=== PATIENT | male | born 1965 | race Caucasian/White ===

== ENCOUNTER 2021-05-01 16:22 | Inpatient (IN) | payer MEDICARE, SELFPAY ==
[2021-05-01] VITALS (12 sets, daily range): BP systolic 121–148; BP diastolic 62–93; PULSE 92–112; RESP 17–31; TEMP 36.9–38.1; O2SAT 83–99; BMI 29.8; BMI 32.9
--- NOTE | 2021-05-01 17:11 | RAD_ITS ---
STUDY: X-RAY CHEST REASON FOR EXAM: Male, 56 years old. Cough. COVID. Shortness of breath. Hypoxia. TECHNIQUE: Single AP portable view of the chest. COMPARISON: None. FINDINGS: Elevated right hemidiaphragm. There is patchy densities in the right perihilar region and left lung base. There is no demonstrated pleural abnormality. Normal size heart. Normal mediastinum and shelly. Normal visualized pulmonary arteries. Normal visualized aortic arch and descending thoracic aorta. Normal visualized thoracic spine. Normal visualized ribs, clavicles, and shoulders. There is no demonstrated abnormality of the visualized soft tissue structures of the upper abdomen. RAD/Chest 1 View (Portable) IMPRESSION: Bilaterally pulmonary infiltrates suspicious for COVID pneumonia. Electronically Signed: Ha Lara DO at 17:37 EDT Tel [phone], Service support ,
[2021-05-01] MEDS: Acetaminophen 500 MG Tablet 1000 MG PO (17:27)
[2021-05-01 17:33] LABS: Absolute Lymphocyte Count 0.77 X10^3/uL (0.83-4.51); Absolute Neutrophil Count 5.2 X10^3/uL (2.0-7.7); Basophil# 0.02 X10^3/uL; Basophil% 0.3 % (0-1); Hematocrit 47.9 % (40-54); Hemoglobin 16.4 g/dL (13.0-16.5); Lymphocyte # 0.77 X10^3/ul (0.83-4.51); Lymphocyte % 11.5 % (19-41); Mean Corp Hgb Conc 34.2 g/dL (32-36); Mean Corpuscular Hgb 30.8 pg (27.0-32.0); Mean Platelet Vol. 11.4 fl (6.2-12.0); Monocyte# 0.69 X10^3/uL; Monocyte% 10.3 % (0-10); NRBC Flagged by Analyzer 0 % (0-5); Neutrophil # 5.17 X10^3/uL (2.7-7.7); Neutrophil % 77.5 % (47-70); Platelet Count 173 K/mm3 (150-450); RBC Distribution Width CV 12.3 % (11.6-14.6); RBC Distribution Width SD 40.6 fl (35.1-43.9); Red Blood Count 5.32 M/mm3 (4.6-6.2); White Blood Count 6.7 K/mm3 (4.4-11.0)
[2021-05-01 17:44] LABS: D-Dimer Quantitative (DVT/PE) 0.87 FEU/ug/m (0.27-0.49)
--- NOTE | 2021-05-01 17:47 | CT_ITS ---
STUDY: CTA CHEST REASON FOR EXAM: Male, 56 years old. Shortness of breath. COVID. 83% oxygen saturation on room air. RADIATION DOSAGE (If Supplied By Facility): CTDIvol = ( 12.4 ) mGy, DLP = ( 546.35 ) mGycm TECHNIQUE: The examination was performed with the intravenous administration of IV 100mL Isovue-370. Post-processing of the angiographic images was performed, with multiplanar reformation and 3D reconstruction. Individualized dose optimization techniques were used for this CT. COMPARISON: None. FINDINGS: Normal enhancement of the main pulmonary artery and right and left pulmonary arteries. Normal enhancement of the bilateral peripheral pulmonary arteries. There is no demonstrated pulmonary embolism. Mild atherosclerotic changes of the thoracic aorta without aneurysm. There is no demonstrated aortic dissection. Normal heart and pericardium. Mediastinal or hilar lymphadenopathy. The largest node, in the subcarinal space measures 2.3 x 2.0 x 1.2 cm in size. Normal visualized trachea and bronchi. The lungs are well expanded. Patchy groundglass infiltrates throughout both lungs, predominantly peripheral in location with no focal mass or consolidation. Normal pleura. Normal chest wall structures. Normal osseous structures. Normal visualized upper abdomen. CT/CTA Chest W/WO Contrast IMPRESSION: 1. No evidence of pulmonary embolus. 2. No aortic dissection or aneurysm. 3. Peripheral groundglass pulmonary infiltrates consistent with COVID 19 pneumonia. Electronically Signed: Ha Lara DO at 18:26 EDT Tel [phone], Service support ,
[2021-05-01 17:51] LABS: ALB/GLOB Ratio 0.5 RATIO (0.9-2.4); AST(SGOT) 49 U/L (15-37); Alanine Aminotransfer ALT/SGPT 43 U/L (16-61); Albumin, Serum 2.9 g/dL (3.2-5.0); Alkaline Phosphatase 88 U/L (45-117); Anion Gap 6 (5-15); BUN 14 mg/dL (7-18); BUN/Creat Ratio 12.8 RATIO (10-20); Calcium,Total 8.3 mg/dL (8.5-10.1); Chloride 98 mmol/L (98-107); Creatinine, Serum 1.09 mg/dL (0.70-1.30); EST Glomerular Filtration Rate 74 mL/min (>60); Est Glom Filt Rate - Afr Amer 90 mL/min (>60); Estimated Creatinine Clearance 68.29 ml/min; Globulin 5.5 g/dL (2.2-4.2); Glucose 99 mg/dL (74-106); Potassium 4.4 mmol/L (3.5-5.1); Protein, Total 8.4 g/dL (6.4-8.2); Sodium Level 133 mmol/L (136-145); Troponin-I HS 8 pg/mL (3.0-78.0)
[2021-05-01 17:59] LABS: Lactic Acid 1.4 mmol/L (0.4-1.9)
[2021-05-01 18:03] LABS: Procalcitonin 0.11 ng/mL (0.00-0.09)
--- NOTE | 2021-05-01 18:44 | EDS_ITS ---
HPI History of Present Illness Chief Complaint: Shortness of Breath Narrative Narrative: Patient presenting for evaluation secondary to complications of coronavirus. Patient states that he is about 9 days into a coronavirus infection. He states that he was doing generally okay, but today started to have significant feelings of shortness of breath. He states that it is a feeling that he cannot take a deep breath without having a cough reflex. Denies any mops is. He has been having fevers and diarrhea. Is also been having some dry heaves associated with it. Patient denies any underlying history of lung disease, no smoking. Patient had a triage pulse ox of 83%. PFSH PFS Medical History no medical history Home Medications NK 05/01/21 [History Last Taken Unknown] Allergy/AdvReac Type Severity Reaction Status Date / Time No Known Allergies Allergy Verified 05/01/21 16:23 Social History Smoking Status: Never smoker ROS ROS ED Constitutional Constitutional ED: Reports chills and fever(s) ENT ENT ED: Denies rhinorrhea Cardiovascular Cardiovascular: Denies chest pain Respiratory/Chest Respiratory/Chest: Reports cough and dyspnea Gastrointestinal Gastrointestinal: Reports diarrhea and vomiting Genitourinary Genitourinary ED: Denies dysuria or hematuria Musculoskeletal Musculoskeletal: Denies back pain Integumentary Denies rash Neurologic Neurologic: Denies paresthesias or weakness Psychiatric Psychiatric: Denies depression Endocrine Endocrinology: Denies fatigue Allergic/Immunologic Allergic/Immunologic ED: Denies urticaria EXAM Physical Exam Const Vital Signs: 05/01/21 16:24 05/01/21 16:26 05/01/21 17:01 Temperature 100.5 F H 100.5 F H Temperature Source Temporal Temporal Pulse Rate 112 H 112 H Respiratory Rate 24 H 22 H 22 H Respiratory Effort Respiratory Depth Respiratory Pattern Blood Pressure 124/85 H 124/85 H Blood Pressure Mean 98 98 Pulse Ox 83 97 97 Oxygen Delivery Method Room Air Nasal Cannula Nasal Cannula Oxygen Flow Rate (L/min) 2 2 05/01/21 17:02 05/01/21 17:28 05/01/21 18:42 Temperature 98.7 F Temperature Source Oral Pulse Rate 110 H 108 H Respiratory Rate 25 H 17 Respiratory Effort Short of Breath Respiratory Depth Deep Respiratory Pattern Tachypnea Blood Pressure 142/87 H 148/62 H Blood Pressure Mean 105 90 Pulse Ox 95 94 Oxygen Delivery Method Nasal Cannula Nasal Cannula Nasal Cannula Oxygen Flow Rate (L/min) 2 2 2 Positive well nourished and well developed General Appearance ED: well developed and NAD HEENT Reports moist mucous membranes Negative for trauma or tenderness Eyes EOMs intact bilaterally Neck no lymphadenopathy, supple and no JVD Chest Wall inspection of chest normal Resp Resp Narrative: Patient is tachypneic with clear lung sounds Cardio regular rhythm, no murmurs and peripheral pulses 2+ throughout Rate: tachycardic GI normal to inspection, nondistended, normoactive bowel sounds, non-tender and no masses Palpation: soft Back/Spine normal to inspection Extremity normal to inspection General Extremety ED: Negative for tenderness Neuro oriented x3 and no sensory deficits noted Sensorium / Orientation: alert Motor Exam: strength 5/5 throughout Psych mental status grossly normal Skin no rashes or lesions noted MDM MDM MDM Narrative Medical decision making narrative: Patient was 83% on arrival, he was placed on supplemental oxygen. Patient's had a work-up obtained in the emergency department. He was given fluids and Tylenol. Patient's pulse ox did bump up to 94% on supplemental oxygen. CBC was unremarkable, D-dimer was unfortunately found to be positive chemistry was unremarkable, CRP was elevated at 90. CT angiogram of the chest was obtained did not show any signs of pulmonary emboli shows infiltrates consistent with the patient's coronavirus. I reviewed the patient's x-ray personally, and this also shows bilateral infiltrates. Patient will be administered steroids, I believe that he requires admission at this point. Patient was admitted for further treatment. Lab Data Labs: Laboratory Results - last 24 hr 05/01/21 05/01/21 05/01/21 17:20 17:20 17:20 WBC 6.7 RBC 5.32 Hgb 16.4 Hct 47.9 MCV 90.0 MCH 30.8 MCHC 34.2 RDW Std Deviation 40.6 RDW Coeff of Stevie 12.3 Plt Count 173 MPV 11.4 Immature Gran % (Auto) 0.400 Neut % (Auto) 77.5 H Lymph % (Auto) 11.[address] [place] % (Auto) 10.3 H Eos % (Auto) 0.0 Baso % (Auto) 0.3 Absolute Neuts (auto) 5.2 Absolute Lymphs (auto) 0.77 L Nucleated RBC % 0 D-Dimer Quant (PE/DVT) 0.87 H* Sodium 133 L Potassium 4.4 Chloride 98 Carbon Dioxide 29.0 Anion Gap 6 BUN 14 Creatinine 1.09 Estim Creat Clear Calc 68.29 Est GFR (MDRD) Af Amer 90 Est GFR (MDRD) Non-Af 74 BUN/Creatinine Ratio 12.8 Glucose 99 Lactic Acid Calcium 8.3 L Total Bilirubin 0.30 AST 49 H ALT 43 Alkaline Phosphatase 88 Troponin I High Sens 8 C-React Prot Ext Range 90.70 H Total Protein 8.4 H Albumin 2.9 L Globulin 5.5 H Albumin/Globulin Ratio 0.5 L Procalcitonin 05/01/21 05/01/21 17:20 17:20 WBC RBC Hgb Hct MCV MCH MCHC RDW Std Deviation RDW Coeff of Stevie Plt Count MPV Immature Gran % (Auto) Neut % (Auto) Lymph % (Auto) [place] % (Auto) Eos % (Auto) Baso % (Auto) Absolute Neuts (auto) Absolute Lymphs (auto) Nucleated RBC % D-Dimer Quant (PE/DVT) Sodium Potassium Chloride Carbon Dioxide Anion Gap BUN Creatinine Estim Creat Clear Calc Est GFR (MDRD) Af Amer Est GFR (MDRD) Non-Af BUN/Creatinine Ratio Glucose Lactic Acid 1.4 Calcium Total Bilirubin AST ALT Alkaline Phosphatase Troponin I High Sens C-React Prot Ext Range Total Protein Albumin Globulin Albumin/Globulin Ratio Procalcitonin 0.11 H Radiography Diagnostic Testing: Radiology Impression Chest X-Ray 05/01/21 17:11 IMPRESSION: Bilaterally pulmonary infiltrates suspicious for COVID pneumonia. Electronically Signed: Ha Lara DO at 17:37 EDT Tel [phone], Service support , Chest CTA 05/01/21 17:47 IMPRESSION: 1. No evidence of pulmonary embolus. 2. No aortic dissection or aneurysm. 3. Peripheral groundglass pulmonary infiltrates consistent with COVID 19 pneumonia. Electronically Signed: Ha Lara DO at 18:26 EDT Tel [phone], Service support , Discharge Plan Triage Chief Complaint: Shortness of Breath ED Provider: Zachery Stephenson Dx/Rx/DC Orders Clinical Impression: COVID-19, Hypoxia Prescriptions: No Action NK RF: 0 Primary Care Provider: Livan Infante Referrals: Livan Infante MD [Primary Care Provider] - Disposition Disposition: Acute Care [facility]
[2021-05-01] MEDS: 0.9% Normal Saline 1,000 ML 125 ML IV (19:33)
[2021-05-01] MEDS: dexAMETHasone 4 MG/ML Vial 6 MG IV (19:33)
--- NOTE | 2021-05-01 19:33 | PCM.HP.STD ---
HPI - General HPI Narrative MELINDA VIGIL, is a 56 M came to ED for shortness of breath, weakness, hypoxia pulse ox 83% on room air. Patient has symptom onset of fatigue, weakness, loss of appetite about 8 days ago last Friday and then after 3 days started having mild diarrhea. For last 3 to 4 days is feeling short of breath on walking and cough. Loss of appetite and taste but retains sense of smell. His is also positive of Covid. Was tested Covid as an outpatient most probably PCR in [facility] on last 03/25/2021. In ED rapid antigen positive. D-dimer mildly elevated. Chest x-ray and CTA was done. No evidence of PE but peripheral groundglass pulmonary infiltrate consistent with COVID-19 pneumonia. Patient was given IV dexamethasone in ED and admitted. [facility] Medical History no medical history Home Medications NK 05/01/21 [History Last Taken Unknown] Allergy/AdvReac Type Severity Reaction Status Date / Time No Known Allergies Allergy Verified 05/01/21 16:23 Social History Smoking Status: Never smoker ROS ROS Narrative Constitutional: Fever, temperature 100.8 ?F T-max about 2 to 3 days ago. Reports fatigue and weakness HEENT: Reports systems reviewed and no addt'l complaints, except as documented Respiratory/Chest: Denies chest pain, shortness of breath with exertion. Hypoxia Gastrointestinal: Denies coffee ground emesis, hematemesis or vomiting Genitourinary: Denies burning urination or new urinary tract symptoms Musculoskeletal: Reports joint pain and limited range of motion Neurologic: Denies seizure-like activity skin: No ulcer. No rash Endocrinology: Reports systems reviewed and no addt'l complaints, except as documented Hematologic/Lymphatic: Reports systems reviewed and no addt'l complaints, except as documented Rest 12 ROS are negative except as mentioned in HPI Vital Signs Vital Signs Vital Signs: 05/01/21 16:24 05/01/21 16:26 05/01/21 17:01 Temperature 100.5 F H 100.5 F H Temperature Source Temporal Temporal Pulse Rate 112 H 112 H Respiratory Rate 24 H 22 H 22 H Respiratory Effort Respiratory Depth Respiratory Pattern Blood Pressure 124/85 H 124/85 H Blood Pressure Mean 98 98 Pulse Ox 83 97 97 Oxygen Delivery Method Room Air Nasal Cannula Nasal Cannula Oxygen Flow Rate (L/min) 2 2 05/01/21 17:02 05/01/21 17:28 05/01/21 18:42 Temperature 98.7 F Temperature Source Oral Pulse Rate 110 H 108 H Respiratory Rate 25 H 17 Respiratory Effort Short of Breath Respiratory Depth Deep Respiratory Pattern Tachypnea Blood Pressure 142/87 H 148/62 H Blood Pressure Mean 105 90 Pulse Ox 95 94 Oxygen Delivery Method Nasal Cannula Nasal Cannula Nasal Cannula Oxygen Flow Rate (L/min) 2 2 2 Weight Weight: 185 lb Body Mass Index (BMI) 29.8 Physical Exam Narrative General: Alert, Oriented x3, Cooperative HEENT: Atraumatic, PERRLA, EOMI, Normocephalic Oral: No Gingival or Mucosal Lesions/ Ulcerations Neck: Supple, No JVD, Negative Carotid Bruits Lungs: Air entry diminished in bilateral lung bases. Bilateral coarse crepitations present in the lung bases. Mild hypoxia Cardiovascular: Sinus tachycardia, Normal S1, Normal S2, No murmurs Abdomen: Bowel Sounds Present, Soft, Non Tender, Non-Distended : No renal angle tenderness. No suprapubic tenderness. Extremities: No edema, Capillary Refill Less than 3 Seconds Skin: No rashes, No breakdown Musculoskeletal: No Tenderness to Palpation of Joints or Extremities Neurological: Cranial nerves II-XII grossly intact, DTR 2+/4 and Symmetrical, Neuro grossly intact Psych/Mental Status: Normal Affect, Appropriate. Results Lab / Micro Data Result Diagrams: 05/01/21 17:20 05/01/21 17:20 Labs: Laboratory Results - last 24 hr 05/01/21 17:20: WBC 6.7, RBC 5.32, Hgb 16.4, Hct 47.9, MCV 90.0, MCH 30.8, MCHC 34.2, RDW Std Deviation 40.6, RDW Coeff of Stevie 12.3, Plt Count 173, MPV 11.4, Immature Gran % (Auto) 0.400, Neut % (Auto) 77.5 H, Lymph % (Auto) 11.5 L, [place] % (Auto) 10.3 H, Eos % (Auto) 0.0, Baso % (Auto) 0.3, Absolute Neuts (auto) 5.2, Absolute Lymphs (auto) 0.77 L, Nucleated RBC % 0 05/01/21 17:20: D-Dimer Quant (PE/DVT) 0.87 H* 05/01/21 17:20: Sodium 133 L, Potassium 4.4, Chloride 98, Carbon Dioxide 29.0, Anion Gap 6, BUN 14, Creatinine 1.09, Estim Creat Clear Calc 68.29, Est GFR (MDRD) Af Amer 90, Est GFR (MDRD) Non-Af 74, BUN/Creatinine Ratio 12.8, Glucose 99, Calcium 8.3 L, Total Bilirubin 0.30, AST 49 H, ALT 43, Alkaline Phosphatase 88, Troponin I High Sens 8, C-React Prot Ext Range 90.70 H, Total Protein 8.4 H, Albumin 2.9 L, Globulin 5.5 H, Albumin/Globulin Ratio 0.5 L 05/01/21 17:20: Lactic Acid 1.4 05/01/21 17:20: Procalcitonin 0.11 H Micro: Microbiology 05/01/21 17:34 Nasal Secretion SARS-CoV-2 Antigen (Rapid) - Final SARS-CoV-2 (COVID 19) Radiology Impression Chest X-Ray 05/01/21 17:11 IMPRESSION: Bilaterally pulmonary infiltrates suspicious for COVID pneumonia. Electronically Signed: Ha Lara DO at 17:37 EDT Tel [phone], Service support , Chest CTA 05/01/21 17:47 IMPRESSION: 1. No evidence of pulmonary embolus. 2. No aortic dissection or aneurysm. 3. Peripheral groundglass pulmonary infiltrates consistent with COVID 19 pneumonia. Electronically Signed: Ha Lara DO at 18:26 EDT Tel [phone], Service support , Assessment & Plan Assessment/Plan (1) COVID-19: PLAN: 1. Acute bilateral COVID-19 pneumonia with mild hypoxia: Patient is being admitted on [facility]. Inflammatory markers are ordered. Started on IV dexamethasone and remdesivir. D-dimer mildly elevated but CT negative negative for PE. Procalcitonin 0.11. CRP elevated. Liver chemistry shows normal transaminases but hypoalbuminemia. 2. Moderate hyponatremia: Sodium 133. Patient is on IV fluid normal saline. Monitor electrolytes 3. VT prophylaxis moderate risk: On Lovenox 30 subcu twice daily Living will/advanced directive/end of life care: Patient does have living will or advanced directive. After discussion of benefits/risks procedures involved with full code, DNR CC arrest and DNR CC, the patient opted for full code. Patient does want artificial life support including intubation, tube feed, ventilator and/chest compression, central venous catheter, vasopressor and DC shock if needed Total time spent in [id number] encounter in discussion of advanced directive 16 minutes. Charges/Coding Visit Charges Inpatient E&M: 03000 Init Hosp L3 Procedures Hospitalists Procedures: 93364 Advncd Care Plan 30 Min
[2021-05-01 20:50] LABS: Prothrombin Time (Protime)PT. 12.5 SECONDS (11.7-14.9)
[2021-05-01 20:51] LABS: Fibrinogen 801 mg/dl (203-444)
[2021-05-01] MEDS: Enoxaparin 30 MG/0.3 ML Syringe SC (21:20)
[2021-05-01 21:24] LABS: CPK Total, Creatine Kinase 99 U/L (39-308); LDH 373 U/L (87-241)
[2021-05-01] MEDS: guaiFENesin/D-Methorphan TAB.SR.12H 1 TABLET PO (21:30)
[2021-05-01 22:01] LABS: BNP,B-Type NATRIURETIC PEPTIDE < 2.0 pg/mL (0-100)
[2021-05-02] VITALS (16 sets, daily range): BP systolic 123–146; BP diastolic 82–98; PULSE 78–106; RESP 16–20; TEMP 36.5–36.9; O2SAT 92–96
[2021-05-02] MEDS: MELATONIN 10 MG TABLET 5 MG PO ×2 (00:26→21:41)
[2021-05-02] MEDS: 0.9% Normal Saline 1,000 ML 75 ML IV ×2 (06:07→19:17)
[2021-05-02 07:00] LABS: Absolute Lymphocyte Count 0.84 X10^3/uL (0.83-4.51); Absolute Neutrophil Count 4.8 X10^3/uL (2.0-7.7); Basophil# 0.01 X10^3/uL; Basophil% 0.2 % (0-1); Hematocrit 51.2 % (40-54); Lymphocyte # 0.84 X10^3/ul (0.83-4.51); Lymphocyte % 13.9 % (19-41); Mean Corp Hgb Conc 33.2 g/dL (32-36); Mean Corpuscular Hgb 30.7 pg (27.0-32.0); Mean Corpuscular Volume 92.4 fL (80-94); Mean Platelet Vol. 11.5 fl (6.2-12.0); Monocyte# 0.42 X10^3/uL; NRBC Flagged by Analyzer 0 % (0-5); Neutrophil # 4.75 X10^3/uL (2.7-7.7); Neutrophil % 78.6 % (47-70); Platelet Count 196 K/mm3 (150-450); RBC Distribution Width CV 12.2 % (11.6-14.6); RBC Distribution Width SD 42.5 fl (35.1-43.9); Red Blood Count 5.54 M/mm3 (4.6-6.2)
[2021-05-02 07:47] LABS: ALB/GLOB Ratio 0.5 RATIO (0.9-2.4); AST(SGOT) 57 U/L (15-37); Alanine Aminotransfer ALT/SGPT 43 U/L (16-61); Albumin, Serum 2.7 g/dL (3.2-5.0); Alkaline Phosphatase 88 U/L (45-117); Anion Gap 4 (5-15); BUN 16 mg/dL (7-18); Calcium,Total 8.5 mg/dL (8.5-10.1); Chloride 105 mmol/L (98-107); Creatinine, Serum 1.07 mg/dL (0.70-1.30); EST Glomerular Filtration Rate 76 mL/min (>60); Est Glom Filt Rate - Afr Amer 92 mL/min (>60); Estimated Creatinine Clearance 69.56 ml/min; Globulin 5.9 g/dL (2.2-4.2); Glucose 123 mg/dL (74-106); Potassium 4.6 mmol/L (3.5-5.1); Protein, Total 8.6 g/dL (6.4-8.2); Sodium Level 134 mmol/L (136-145)
[2021-05-02] MEDS: guaiFENesin/D-Methorphan TAB.SR.12H 1 TABLET PO ×2 (08:25→21:39)
[2021-05-02] MEDS: Enoxaparin 30 MG/0.3 ML Syringe SC ×2 (08:25→21:39)
[2021-05-02] MEDS: 0.9% Saline Lock 10 ML Syringe IV (08:25)
[2021-05-02] MEDS: dexAMETHasone 10 MG/ML Vial 6 MG IV (08:26)
--- NOTE | 2021-05-02 10:55 | CASEMGMT ---
Addendum entered by Eileen Du 05/02/21 11:57: SW updated that pt had questions regarding financial resources that were provided to him. SW spoke with pt about resources that were provided, questions answered. Pt denied additional questions or concerns at this time. Original Note: Social Work Note SW aware pt is listed as self-pay. SW provided RN CM with financial resources to provide to pt. These resources include HCAP application, Medicaid Application, and Prescription assistance resources. Pt is resident of [facility], unable to provide pt with [facility] financial resources. RN CM to provide pt with resources during assessment. Eileen Du SPECIAL EVENT ASSISTANT, MIXING PLANT OPERATOR
--- NOTE | 2021-05-02 11:13 | CASEMGMT ---
PRABHA NEGRETE Assessment: Face to Face with pt for initial transition planning/care coordination assessment. RN CADEN introduced self and role at [facility], pt voices understanding and consents to assessment. Pt is A/O x4 and answers all questions appropriately at this time. Pt sitting up in chair with O2 on in no distress. Care providers, pharmacy, and demographics verified/updated. Provided patient packet of documents for resources from KARIN Nevarez. Pt requests she call his room to review some information. Notified her of the same. Admitting Dx: COVID 19 PNA PCP: Naresh Specialists:Pt denies Preferred [facility]acy: [facility] Insurance: Uninsured COVID, Self Pay Prescription Benefit: no LW/HPOA: Pt states he has a LW/DPOA and his is his DPOA. He is aware that this is not on file at [facility] and he may bring in to be scanned into the chart. LNOK: Mayelin Lee, Living Arrangements: Pt lives with in a two story house with 5 steps to enter. Pt reports being I in ADL's prior to hospitalization and denies concerns at home. Transportation: Pt drives self and denies concerns with transportation. DME/HHC/SNF: Pt denies having any DME, previous HHC or SNF stays. Pt states he was tested for COVID at [facility] in [place]. His also is positive for COVID. Pt does have family who can provide groceries and supplies and have been doing this for his . Patient was provided a list of local DME providers should he need O2 on dc, pt chose [employer]. Pt denies drinking alcohol, smoking cigarettes, using street drugs or illegal drugs. 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 Pt states no concerns with going home at time of dc. Pt states no further concerns/needs. CM to follow. Advised pt to ask CM if any further question/concerns/needs arise, voices understanding. Pt Goal: Home Plan: Home
--- NOTE | 2021-05-02 18:51 | PCM.PN.HOSP ---
Subjective Subjective Patient was seen and examined today, last night he was admitted for hypoxia and COVID-19 pneumonia, he remains on 2 L via nasal cannula at this time. Objective Data Objective Data Vital Signs: Vital Signs Temp Pulse Resp BP Pulse Ox 98 F 99 20 H 146/86 H 94 05/02/21 17:45 05/02/21 17:45 05/02/21 17:45 05/02/21 17:45 05/02/21 17:45 Oxygen Flow Rate (L/min) 2 Oxygen Delivery Method Nasal Cannula Weight: 92.624 kg Body Mass Index (BMI) 32.9 Intake & Output: Intake and Output for Last 24 Hours 04/30/21 05/01/21 05/02/21 23:59 23:59 23:59 Intake Total 750 / 750 4.58 / 1913.58 Balance 750 / 750 1913.58 / 1913.58 Lab / Micro Data Result Diagrams: 05/02/21 06:20 05/02/21 06:20 Labs: Laboratory Results - last 24 hr 05/01/21 17:20: PT 12.5, INR 1.0, Fibrinogen 801 H 05/01/21 17:20: Lactate Dehydrogenase 373 H, Total Creatine Kinase 99 05/01/21 17:20: B-Natriuretic Peptide < 2.0 05/02/21 06:20: WBC 6.0, RBC 5.54, Hgb 17.0 H, Hct 51.2, MCV 92.4, MCH 30.7, MCHC 33.2, RDW Std Deviation 42.5, RDW Coeff of Stevie 12.2, Plt Count 196, MPV 11.5, Immature Gran % (Auto) 0.300, Neut % (Auto) 78.6 H, Lymph % (Auto) 13.9 L, [place] % (Auto) 7.0, Eos % (Auto) 0.0, Baso % (Auto) 0.2, Absolute Neuts (auto) 4.8, Absolute Lymphs (auto) 0.84, Nucleated RBC % 0 05/02/21 06:20: Sodium 134 L, Potassium 4.6, Chloride 105, Carbon Dioxide 25.0, Anion Gap 4 L, BUN 16, Creatinine 1.07, Estim Creat Clear Calc 69.56, Est GFR (MDRD) Af Amer 92, Est GFR (MDRD) Non-Af 76, BUN/Creatinine Ratio 15.0, Glucose 123 H, Calcium 8.5, Total Bilirubin 0.40, AST 57 H, ALT 43, Alkaline Phosphatase 88, Total Protein 8.6 H, Albumin 2.7 L, Globulin 5.9 H, Albumin/Globulin Ratio 0.5 L Micro: Microbiology 05/01/21 17:34 Nasal Secretion SARS-CoV-2 Antigen (Rapid) - Final SARS-CoV-2 (COVID 19) Physical Exam Const alert, oriented x3, no apparent distress and healthy appearing General Appearance: cooperative, well kempt and well developed Orientation / Consciousness: awake, oriented to person, oriented to place and oriented to time HEENT normocephalic, head/scalp atraumatic and moist oral mucous membranes Head and Scalp: normocephalic Eyes PERRL, EOMs intact bilaterally and conjunctivae normal Neck nuchal rigidity, supple, no JVD, thyroid normal and no carotid bruits General: trachea midline Resp normal respiratory effort, no retractions, no use of accessory muscles and clear to auscultation bilaterally Auscultation: Negative for rales, rhonchi or wheezes Cardio regular rate, regular rhythm, no murmurs, no rub and no gallops GI normal to inspection, nondistended, normoactive bowel sounds, soft to palpation, non-tender and non-distended Extremity no clubbing, cyanosis or edema Skin no rashes or lesions noted General Skin Exam: no breakdown Neuro oriented x3, CN's II-XII intact bilaterally, no focal motor deficits and no sensory deficits noted Sensorium / Orientation: awake and alert Speech: speech normal Psych thought process normal and affect normal Assessment & Plan Assessment/Plan (1) COVID-19: PLAN: 1. COVID-19 pneumonia-continue remdesivir and dexamethasone day 2 #2 acute hypoxic respiratory failure secondary to #1-oxygen will be monitored and weaned if possible Charges/Coding Visit Charges Inpatient E&M: 86856 Subs Hosp L2
[2021-05-02] MEDS: Acetaminophen 325 MG Tablet 650 MG PO (21:38)
[2021-05-03] VITALS (7 sets, daily range): BP systolic 111–138; BP diastolic 71–89; PULSE 80–96; RESP 18–20; TEMP 36.5–37; O2SAT 92–100
[2021-05-03 06:49] LABS: Absolute Lymphocyte Count 1.08 X10^3/uL (0.83-4.51); Absolute Neutrophil Count 11.2 X10^3/uL (2.0-7.7); Basophil# 0.03 X10^3/uL; Basophil% 0.2 % (0-1); Hematocrit 48.6 % (40-54); Hemoglobin 16.3 g/dL (13.0-16.5); Lymphocyte # 1.08 X10^3/ul (0.83-4.51); Lymphocyte % 8.3 % (19-41); Mean Corp Hgb Conc 33.5 g/dL (32-36); Mean Corpuscular Hgb 30.9 pg (27.0-32.0); Mean Corpuscular Volume 92.2 fL (80-94); Mean Platelet Vol. 11.3 fl (6.2-12.0); Monocyte# 0.63 X10^3/uL; Monocyte% 4.8 % (0-10); NRBC Flagged by Analyzer 0 % (0-5); Neutrophil # 11.18 X10^3/uL (2.7-7.7); Platelet Count 228 K/mm3 (150-450); RBC Distribution Width CV 12.2 % (11.6-14.6); Red Blood Count 5.27 M/mm3 (4.6-6.2)
[2021-05-03 07:12] LABS: ALB/GLOB Ratio 0.5 RATIO (0.9-2.4); AST(SGOT) 43 U/L (15-37); Alanine Aminotransfer ALT/SGPT 39 U/L (16-61); Albumin, Serum 2.5 g/dL (3.2-5.0); Alkaline Phosphatase 77 U/L (45-117); Anion Gap 4 (5-15); BUN 23 mg/dL (7-18); BUN/Creat Ratio 25.6 RATIO (10-20); Calcium,Total 8.2 mg/dL (8.5-10.1); Chloride 110 mmol/L (98-107); EST Glomerular Filtration Rate 93 mL/min (>60); Est Glom Filt Rate - Afr Amer 112 mL/min (>60); Glucose 145 mg/dL (74-106); Potassium 4.4 mmol/L (3.5-5.1); Protein, Total 7.5 g/dL (6.4-8.2); Sodium Level 137 mmol/L (136-145)
[2021-05-03] MEDS: dexAMETHasone 10 MG/ML Vial 6 MG IV (08:39)
[2021-05-03] MEDS: Enoxaparin 30 MG/0.3 ML Syringe SC ×2 (08:39→21:10)
[2021-05-03] MEDS: guaiFENesin/D-Methorphan TAB.SR.12H 1 TABLET PO ×2 (08:39→21:10)
[2021-05-03] MEDS: 0.9% Saline Lock 10 ML Syringe IV (08:40)
--- NOTE | 2021-05-03 19:13 | PCS.PANDOC ---
PANDEMIC DOCUMENTATION INITIATED: Date: 03/26/2021 Time: 190
--- NOTE | 2021-05-03 19:16 | PN.HOSP_ITS ---
Subjective Subjective Patient was seen and examined today, he is on 2 L via nasal cannula at this time. Patient does not complain of any shortness of breath, he complained to nursing that he did not sleep well last night so I have elected to place him on Restoril for sleep at night. Objective Data Objective Data Vital Signs: Vital Signs Temp Pulse Resp BP Pulse Ox 97.7 F L 96 20 H 111/71 96 05/03/21 14:34 05/03/21 14:34 05/03/21 14:34 05/03/21 14:34 05/03/21 14:34 Oxygen Flow Rate (L/min) 2 Oxygen Delivery Method Nasal Cannula Weight: 92.624 kg Body Mass Index (BMI) 32.9 Intake & Output: Intake and Output for Last 24 Hours 05/01/21 05/02/21 05/03/21 23:59 23:59 23:59 Intake Total 750 / 750 3152.08 / 3152.08 1417.5 / 1417.5 Balance 750 / 750 3152.08 / 3152.08 1417.5 / 1417.5 Lab / Micro Data Result Diagrams: 05/03/21 06:15 05/03/21 06:15 Labs: Laboratory Results - last 24 hr 05/03/21 06:15: WBC 13.0 H, RBC 5.27, Hgb 16.3, Hct 48.6, MCV 92.2, MCH 30.9, MCHC 33.5, RDW Std Deviation 42.0, RDW Coeff of Stevie 12.2, Plt Count 228, MPV 11.3, Immature Gran % (Auto) 0.700, Neut % (Auto) 86.0 H, Lymph % (Auto) 8.3 L, [place] % (Auto) 4.8, Eos % (Auto) 0.0, Baso % (Auto) 0.2, Absolute Neuts (auto) 11.2 H, Absolute Lymphs (auto) 1.08, Nucleated RBC % 0 05/03/21 06:15: Sodium 137, Potassium 4.4, Chloride 110 H, Carbon Dioxide 23.0, Anion Gap 4 L, BUN 23 H, Creatinine 0.90, Estim Creat Clear Calc 82.70, Est GFR (MDRD) Af Amer 112, Est GFR (MDRD) Non-Af 93, BUN/Creatinine Ratio 25.6 H, Glucose 145 H, Calcium 8.2 L, Total Bilirubin 0.40, AST 43 H, ALT 39, Alkaline Phosphatase 77, Total Protein 7.5, Albumin 2.5 L, Globulin 5.0 H, Albumin/Globulin Ratio 0.5 L Micro: Microbiology 05/01/21 17:34 Nasal Secretion SARS-CoV-2 Antigen (Rapid) - Final SARS-CoV-2 (COVID 19) Physical Exam Const alert, oriented x3, no apparent distress and healthy appearing General Appearance: cooperative, well kempt and well developed Orientation / Consciousness: awake, oriented to person, oriented to place and oriented to time HEENT normocephalic and moist oral mucous membranes Eyes PERRL, EOMs intact bilaterally and conjunctivae normal Neck nuchal rigidity, supple, no JVD, thyroid normal and no carotid bruits General: trachea midline Resp normal respiratory effort and clear to auscultation bilaterally Auscultation: Negative for rales, rhonchi or wheezes Cardio regular rate, regular rhythm, no murmurs, no rub and no gallops GI normal to inspection, nondistended, normoactive bowel sounds, soft to palpation, non-tender and non-distended Extremity no clubbing, cyanosis or edema Skin no rashes or lesions noted General Skin Exam: no breakdown Neuro oriented x3, CN's II-XII intact bilaterally, no focal motor deficits and no sensory deficits noted Sensorium / Orientation: awake and alert Speech: speech normal Psych thought process normal and affect normal Assessment & Plan Assessment/Plan (1) COVID-19: PLAN: 1. COVID-19 pneumonia-continue remdesivir and dexamethasone day 3 #2 acute hypoxic respiratory failure secondary to #1-oxygen will be monitored and weaned if possible Charges/Coding Visit Charges Inpatient E&M: 31919 Subs Hosp L2
[2021-05-03] MEDS: Acetaminophen 325 MG Tablet 650 MG PO (21:10)
[2021-05-03] MEDS: Temazepam 15 MG Capsule PO (21:10)
[2021-05-04 04:00] VITALS: O2SAT 97
[2021-05-04 04:06] VITALS: BP 112/75; PULSE 89; RESP 18; TEMP 36.6; O2SAT 97
[2021-05-04 06:18] LABS: Absolute Neutrophil Count 10.4 X10^3/uL (2.0-7.7); Basophil# 0.03 X10^3/uL; Basophil% 0.2 % (0-1); Hematocrit 46.8 % (40-54); Hemoglobin 15.7 g/dL (13.0-16.5); Lymphocyte % 8.1 % (19-41); Mean Corp Hgb Conc 33.5 g/dL (32-36); Mean Corpuscular Hgb 30.6 pg (27.0-32.0); Mean Corpuscular Volume 91.2 fL (80-94); Mean Platelet Vol. 11.3 fl (6.2-12.0); Monocyte# 0.87 X10^3/uL; NRBC Flagged by Analyzer 0 % (0-5); Neutrophil # 10.39 X10^3/uL (2.7-7.7); Neutrophil % 84.1 % (47-70); Platelet Count 282 K/mm3 (150-450); RBC Distribution Width CV 12.3 % (11.6-14.6); RBC Distribution Width SD 41.1 fl (35.1-43.9); Red Blood Count 5.13 M/mm3 (4.6-6.2); White Blood Count 12.4 K/mm3 (4.4-11.0)
[2021-05-04 06:51] LABS: ALB/GLOB Ratio 0.5 RATIO (0.9-2.4); AST(SGOT) 48 U/L (15-37); Alanine Aminotransfer ALT/SGPT 57 U/L (16-61); Albumin, Serum 2.5 g/dL (3.2-5.0); Alkaline Phosphatase 79 U/L (45-117); Anion Gap 4 (5-15); BUN 26 mg/dL (7-18); BUN/Creat Ratio 27.6 RATIO (10-20); Calcium,Total 8.3 mg/dL (8.5-10.1); Chloride 107 mmol/L (98-107); Creatinine, Serum 0.94 mg/dL (0.70-1.30); EST Glomerular Filtration Rate 88 mL/min (>60); Est Glom Filt Rate - Afr Amer 106 mL/min (>60); Estimated Creatinine Clearance 79.18 ml/min; Globulin 4.9 g/dL (2.2-4.2); Glucose 116 mg/dL (74-106); Potassium 4.4 mmol/L (3.5-5.1); Protein, Total 7.4 g/dL (6.4-8.2); Sodium Level 138 mmol/L (136-145)
[2021-05-04] MEDS: guaiFENesin/D-Methorphan TAB.SR.12H 1 TABLET PO (08:25)
[2021-05-04] MEDS: dexAMETHasone 10 MG/ML Vial 6 MG IV (08:25)
[2021-05-04] MEDS: Enoxaparin 30 MG/0.3 ML Syringe SC (08:25)
[2021-05-04] MEDS: 0.9% Saline Lock 10 ML Syringe IV (08:26)
[2021-05-04 08:32] VITALS: BP 143/98; PULSE 79; RESP 16; TEMP 36.6; O2SAT 91
[2021-05-04 10:08] VITALS: BP 122/71; PULSE 107; RESP 16; TEMP 37; O2SAT 93
[2021-05-04 10:40] VITALS: O2SAT 86; O2SAT 90; O2SAT 93
--- NOTE | 2021-05-04 11:37 | PCM.DC ---
Discharge Instructions Diet Discharge Diet: No restrictions Activity Discharge Activity: Return to Normal Activity Follow Up Care Test Results: Test results from this visit will be discussed in further detail at your follow-up appointment, if applicable. Discharge Plan Admission Admit Date/Time: 05/01/21 19:26 Primary Reason for Your Visit: COVID-19 pneumonia Attending Provider: Branden Fitch Primary Care Provider: Livan Infante Discharge Orders/Prescriptions Prescriptions: New dexamethasone 2 mg tablet 6 mg PO DAILY Qty: 18 RF: 0 Continued melatonin 5 mg Tablet 5 mg PO QHS RF: 0 Referrals / Follow Up: Livan Infante MD [Primary Care Provider] - See Referral Note (in two weeks) Disposition Disposition (needs filled in before D/C Order can be placed): Home, Self Care
--- NOTE | 2021-05-04 11:57 | CASEMGMT ---
Pt qualifies for home O2 with exertion. Spoke with pt nurse who states pt will not be leaving until later today after a medication is completed. [place] [facility] [place] it was [place] at this time. Jayleen asked if there is someone home so this could be set up prior to pt discharging. TC to pt room, he states his is present in the home. Notified Jayleen of this information.
[2021-05-04 14:46] VITALS: BP 125/86; PULSE 97; RESP 16; TEMP 36.8; O2SAT 94
--- NOTE | 2021-05-04 18:39 | DS.PCM_ITS ---
Providers Date of Admission: 05/01/21 Date of Discharge: 05/04/21 Primary Care Physician: Dr. Livan Infante MD Reason For Visit: COVID 19 PNEUMONIA Diagnosis Discharge Diagnosis (1) COVID-19: Status: Acute Code(s): U07.1 - COVID-19 Plan: 1. COVID-19 pneumonia #2 acute hypoxic respiratory failure secondary to #1 Medications at Discharge Home Medications melatonin 5 mg PO QHS 05/01/21 dexamethasone 6 mg PO DAILY #18 tab 05/04/21 Hospital Course Operations None Procedures None Summary of Care Provided Minutes Spent on Discharge: 30 Hospital Course: This 56-year-old white male was seen in the emergency room at [facility] with a chief complaint of shortness of breath, patient had been diagnosed 9 days prior with COVID-19 infection. Patient's pulse ox in triage was 83% on room air. Work-up in the emergency room included a CT angiogram of the chest which showed no evidence of pulmonary emboli but bilateral infiltrates were noted to be present consistent with coronavirus. Patient was admitted to [place] [address], he was placed on remdesivir and dexamethasone, pulse ox was monitored. On 05/04/2021, patient was seen and examined: On examination he appeared in good health and spirits. Vital signs as documented. Skin warm and dry and without overt rashes. Neck without JVD, neck was supple, trachea midline, thyroid was normal. Lungs clear bilaterally, normal air movement was noted. Heart exam notable for regular rhythm, normal sounds and absence of murmurs, rubs or gallops. Abdomen unremarkable and without evidence of organomegaly, masses, or abdominal aortic enlargement. Bowel sounds are present, abdomen is not distended. Extremities nonedematous, no cyanosis was noted, no clubbing was noted. Neuro: Cranial nerves II through XII are grossly intact, no focal motor deficits were noted, sensation to light touch and pinprick intact, motor exam 5/5 throughout. Psych: Patient is alert and oriented x3, he does not appear anxious or depressed, he does not appear agitated. On 05/04/2021, I had a conversation with the patient concerning discharge planning, he requested to be discharged home on oxygen if necessary after he fi nished his dose of remdesivir on 05/04/2021. Patient understood the risks of going home without the last dose of remdesivir which would be administered on 05/05/2021. Patient required oxygen at 2 L/min on ambulation, he did not require supplemental oxygen at rest. He was expected to use oxygen while ambulating inside his home and outside his home. On 05/04/2021, patient was seen and examined and felt to be stable for discharge home Weight / BMI Weight Weight: 92.624 kg Body Mass Index (BMI) 32.9 ABG / Lab / Microbiology Data Result Diagrams: 05/04/21 05:52 05/04/21 05:52 Laboratory: Laboratory Results - last 24 hr 05/04/21 05:52: WBC 12.4 H, RBC 5.13, Hgb 15.7, Hct 46.8, MCV 91.2, MCH 30.6, MCHC 33.5, RDW Std Deviation 41.1, RDW Coeff of Stevie 12.3, Plt Count 282, MPV 1 1.3, Immature Gran % (Auto) 0.600, Neut % (Auto) 84.1 H, Lymph % (Auto) 8.1 L, [place] % (Auto) 7.0, Eos % (Auto) 0.0, Baso % (Auto) 0.2, Absolute Neuts (auto) 10.4 H, Absolute Lymphs (auto) 1.00, Nucleated RBC % 0 05/04/21 05:52: Sodium 138, Potassium 4.4, Chloride 107, Carbon Dioxide 27.0, Anion Gap 4 L, BUN 26 H, Creatinine 0.94, Estim Creat Clear Calc 79.18, Est GFR (MDRD) Af Amer 106, Est GFR (MDRD) Non-Af 88, BUN/Creatinine Ratio 27.6 H, Glucose 116 H, Calcium 8.3 L, Total Bilirubin 0.30, AST 48 H, ALT 57, Alkaline Phosphatase 79, Total Protein 7.4, Albumin 2.5 L, Globulin 4.9 H, Albumin/Globulin Ratio 0.5 L Microbiology: Microbiology 05/01/21 17:34 Nasal Secretion SARS-CoV-2 Antigen (Rapid) - Final SARS-CoV-2 (COVID 19) D/C Instructions Discharge Diet: No restrictions Meaningful Use Info Meaningful Use Diagnoses (Choose all that apply): None applicable Discharge Plan Admission Admit Date/Time: 05/01/21 19:26 Primary Reason for Your Visit: COVID-19 pneumonia Attending Provider: Branden Fitch Primary Care Provider: Livan Infante Discharge Orders/Prescriptions Prescriptions: New dexamethasone 2 mg tablet 6 mg PO DAILY Qty: 18 RF: 0 Continued melatonin 5 mg Tablet 5 mg PO QHS RF: 0 Referrals / Follow Up: Livan Infante MD [Primary Care Provider] - See Referral Note (in two weeks) Disposition Disposition (needs filled in before D/C Order can be placed): Home, Self Care Charges/Coding Visit Charges Inpatient E&M: 83417 Disch Hosp
--- NOTE | 2021-05-07 13:58 | CASEMGMT ---
PRABHA NEGRETE Discharge Follow-up Phone Call: ELMER: Lonny Strata: 2 Call Date: 05/07/21 Discharge Date: 05/04/21 Time of Call:[id number] Duration: 5 min Admitting Diagnosis: Covid PRABHA NEGRETE completed follow-up phone call after recent hospitalization. Patient states he is doing better. Patient states he has been checking his oxygen level and has not been requiring oxygen. Patient states his oxygen was delivered without issues. Patient was able to fill prescriptions without any issues. Patient aware to schedule follow-up with PCP. Patient had no further questions or concerns at this time.
== END 2021-05-04 18:39 | disposition home or self-care (01) | DRG 177 ==
LOC: ED 19:04 → MS3 21:07
PROVIDERS: Admitting Provider Internal Medicine; Emergency Provider Emergency Medicine; PCP Family Medicine; Visit Provider Internal Medicine
DX: U07.1 COVID-19 (principal); J12.82 Pneumonia due to coronavirus disease 2019; J96.01 Acute respiratory failure with hypoxia; E87.1 Hypo-osmolality and hyponatremia
CPT/HCPCS: 36415; 71045; 71275; 80053; 82550; 83605; 83615; 83880; 84145; 84484; 85025; 85379; 85384; 85610; 86140; 87040; 87426; 94667; 99251; 99285; J7030; J7040; J7050; Q9967; A4216; G0463

== ENCOUNTER 2023-04-15 10:00 | Outpatient (RCR) | payer SELFPAY ==
--- NOTE | 2023-04-02 12:48 | HP.OTEVAL_ITS ---
Patient's Visit Information Visit Information Visit Information: MELINDA VIGIL Jr. is a 58 year old M, referred to Occupational Therapy by Dr. Edwin Hassan MD, with a diagnosis of CTS bilateral hands, R CMC joint, pain in right fingers. 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 Pt main concern this date is the R MF pain. The pain started in the spring however has gotten worse over the last few weeks. Anti-inflammatory medications have helped his R MF pain and edema, though not retirement. Pt is taking Ibuprofen which helps decrease the pain slightly. Pt reports varying sensitivity in R MF throughout day. Patient reports it is taking a longer time to perform ADL/IADL tasks. Pt denies numbness or tingling in bilateral hands and CTS managed well with brace wearing at night and at times during the day during functional tasks. Pt received a cortisone in thumb area on March 21, 2023 - which has helped the thumb. Pt states did take x ray and mention he did have CMC arthritis. pt states he currently has more concerns with his MF at this time. pt would like to know what he can do to decrease his pain and return to his PLOF. 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 pt states he is required to pull on hides and he does this with his fingers- he is unsure if this was cause in sping- pt just went on fishing trip hand had increase in pain and swelling. Pt is right hand dominant. ordered OT services March 03, 2023. ADLs Comments: Difficulty holding fishing cat and mounting deer carrying groceries Pain R MF: Current Pain Intensity: 4 Pain Intensity Range: 8 ROM MP: R MF +4/80 L MF +11 PIP: R MF -15/85 L MF -1/96 DIP: R MF +4/36 L MF 0/81 ROM Comments: Pt able to make a full composite fist with L hand, R hand able to make a loose fist with MF unable to touch palm Pt reports no c/o shoulder limitations during tasks. 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 Pt to improve R lateral/tripod pinch by 4#/7# respectively for increased ability to perform ADL/IADL tasks by discharge Goal:: Pt will be able to make a full composite fist with R hand by week 3. Goal:: Pt to demo no more than 2/10 pain while performing ADL/IADL tasks. Goal:: Pt will present with equal R MF PIP circumference to L PIP joint by week 3. Goal:: Pt will demonstrate understanding of joint protection and adaptive equipment to decrease joint stress while performing ADL/work tasks by d/c. Goal:: pt will demo understanding of Thumb stabilization ex. to decrease joint stress with use of ADLs and IADLs tasks by d/c. pt will demo understanding of adaptive holger. to perform job tasks to decrease joint stress when pulling hides around animal molds by d/c Goal:: Pt to demo overall increased indep in ADL/IADL tasks by decreased total DASH score by 25 points by discharge. Rehabilitation General Assessment: Pt seen for OT eval for CTS bilateral hand pain, R CMC joint, and pain in R MF. Pt demonstrates decreased MF ROM with edema at PIP knuckle, pts right MF painful with movement and proofer black and white force. Pt is limited in his ability to perform ADL and IADL tasks, especially work tasks as pt is self- employed. Pt will benefit from skilled OT for 1-2x a week for 6 weeks to dec rease edema, educate in joint protection, and safely return to daily tasks and work. In regards to CTS dx pt feels he is mtg. symptoms well at this time. Therapist will ed. pt on median nerve glides to add to his current conservative tx. Therapist educated pt in edema management, contrast bath, joint protection, healing process, and encouraged pt to rest hand at night. Pt verbalizes understanding and agrees to OT POC. Therapy session was directly supervised and doc. approved by Pebbles Castillo OTR/Theresa, CHT. Rehabilitation Potential: Good Anticipated Interventions Anticipated Interventions: A/AAROM/PROM, Strengthening, Edema Control, Triggerpoint Release, Modalities, Orthoses, Joint Protection/Energy Conservation, Ergonomic Education, Fine Motor Coord/Santosh, Education re Diagnosis and Home Program Other Interventions: Possible need for orthosis pending response to treatment Visit Plan Frequency: 1-2x /Week Duration: 4-6 Weeks General Plan: Progress towards pain-free ROM with edema management, joint protection, ergonomic education, and PRE TEXT: Thank you for the opportunity to evaluate your patient. For Medicare and Medicare HMO plans, please review the plan of care and approve it. It will need to be FAXED BACK to us at [phone] for Medicare purposes. Please let me know if there are questions or concerns regarding this plan of care. Physician Signature: Date:
--- NOTE | 2023-04-16 08:28 | HP.OTDCSUM_ITS ---
Discharge Summary D/C Summary: It has been my pleasure to treat MELINDA VIGIL Jr. under orders from Dr. Edwin Hassan MD, for the diagnosis of CTS bilateral hands, R CMC joint, pain in right fingers for a total of 3 visit(s). Please see the following information for a summary of their discharge status. 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 Pt did purchase a Pneumatic punch press to and will stop using the hand letter punch to decrease stress on hands. Pt was advised to sleep in right MF gutter splint as tolerated to increase PIP ex- but use as able with oval 8 PIP splint when doing heavy tasks with his hands to decrease stress on joints. pt demo understanding and agree to d/c . Goals Patient Goals: Regain Mobility, Regain Strength, Decrease Pain, Return to Work, Decrease Swelling/Stiffness, Improve Fine Motor Skills, Use Hand/Wrist/Arm Normally Again, Increase ROM, Resume Former Household Responsibilities (Cooking,Cleaning,Yard, etc.) and Resume Hobbies Goal:: Pt to improve R denture waxer strength by 20# to improve grasp with dominant hand on ADL/IADL tasks. Pt to improve R lateral/tripod pinch by 4#/7# respectively for increased ability to perform ADL/IADL tasks by discharge Goal:: Pt will be able to make a full composite fist with R hand by week 3. Goal:: Pt to demo no more than 2/10 pain while performing ADL/IADL tasks. Goal:: Pt will present with equal R MF PIP circumference to L PIP joint by week 3. Goal:: Pt will demonstrate understanding of joint protection and adaptive equipment to decrease joint stress while performing ADL/work tasks by d/c. Goal:: pt will demo understanding of Thumb stabilization ex. to decrease joint stress with use of ADLs and IADLs tasks by d/c. pt will demo understanding of adaptive holger. to perform job tasks to decrease joint stress when pulling hides around animal molds by d/c Goal:: Pt to demo overall increased indep in ADL/IADL tasks by decreased total DASH score by 25 points by discharge. Plan Plan: Discharge D/C Information Discharge Comments: Pt seen for 3 skilled OT visits due to no insurance coverage. Therapist provided education in adaptive approaches to work tasks to decrease joint stress, edema management, and bracing to increase ability to perform tasks. Pt reports understanding and verbalizes different techniques to improve his ability to perform work tasks with decreased pain. Pt agreeable to discharge at this time. d/c sentence: If there are questions or concerns regarding this patient's occupational therapy, please fell free to call me at [phone]. Thank you for the referral of this patient. Sincerely, Pebbles Castillo, OTR/L, CHT
== END 2023-04-15 19:00 | disposition home or self-care (01) ==
LOC: OT 10:00
PROVIDERS: PCP Family Medicine; Referring Provider Orthopaedic Surgery; Visit Provider Orthopaedic Surgery
DX: G56.03 Carpal tunnel syndrome, bilateral upper limbs (principal); M18.11 Unilateral primary osteoarthritis of first carpometacarpal joint, right hand; M79.644 Pain in right finger(s)
CPT/HCPCS: 97166; 97530